=== PATIENT | male | born 1940 | race Caucasian/White ===

== ENCOUNTER → 2018-01-22 13:37 | Outpatient (CLI) | payer OTHER, SELFPAY ==
--- NOTE | 2018-01-22 | DI.RAD.S_ITS ---
PROCEDURE: XR HIP W PEL IF DONE RT 2V INDICATIONS: RIGHT HIP PAIN TECHNIQUE: AP pelvis with lateral view(s) of the right hip(s). COMPARISON: None. FINDINGS: Bones: No fractures or dislocations. Pelvic ring appears intact. No suspicious bony lesions. There is mild symmetric hip joint degeneration bilaterally. Soft tissues: The visualized bowel gas pattern is normal. Vascular calcifications consistent with atherosclerosis. 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 Dictated by: Laura Maravilla M.D. on 01/22/2018 at 15:19 Approved by: Laura Maravilla M.D. on 01/22/2018 at 15:20
== END ==
PROVIDERS: PCP Family Medicine; Visit Provider Family Medicine
DX: M25.551 Pain in right hip (principal); M16.0 Bilateral primary osteoarthritis of hip
CPT/HCPCS: 73502

== ENCOUNTER → 2018-02-15 14:04 | Outpatient (CLI) | payer OTHER, SELFPAY ==
--- NOTE | 2018-02-15 | DI.RAD.S_ITS ---
PROCEDURE: XR CHEST 2V INDICATIONS: COUGH TECHNIQUE: 2 views of the chest were acquired. COMPARISON: [facility], , CHEST 2 VIEW, 11/22/2015, 14:51. FINDINGS: Surgical changes and devices: None. Lungs and pleura: No pleural effusions or pneumothorax. Lungs are clear. Mediastinum: Mediastinal contours are normal. Heart size is normal. Bones and chest wall: No suspicious bony abnormalities. Soft tissues appear unremarkable. IMPRESSION: No acute disease. Dictated by: Marcial De La Cruz M.D. on 02/15/2018 at 15:01 Approved by: Marcial De La Cruz M.D. on 02/15/2018 at 15:02
== END ==
PROVIDERS: Family Provider Family Medicine; PCP Family Medicine; Visit Provider Nurse Practitioner Family
DX: R05 Cough (principal)
CPT/HCPCS: 71046

== ENCOUNTER → 2018-03-19 12:49 | Outpatient (CLI) | payer OTHER, SELFPAY ==
[2018-03-19 13:29] LABS: Prothrombin Time 11.1 SECONDS (10.1-12.7)
== END ==
PROVIDERS: Family Provider Family Medicine; PCP Family Medicine; Visit Provider Urology
DX: N40.1 Benign prostatic hyperplasia with lower urinary tract symptoms (principal); Z79.01 Long term (current) use of anticoagulants
CPT/HCPCS: 36415; 84153; 85610

== ENCOUNTER → 2018-12-04 12:58 | Outpatient (CLI) | payer OTHER, SELFPAY ==
--- NOTE | 2018-12-04 | DI.MRI.S_ITS ---
PROCEDURE: MR LUMBAR SPINE WO CON INDICATIONS: Low back pain TECHNIQUE: Noncontrast sagittal T1 spin echo and T2 fast echo, sagittal STIR, axial T1 and T2 fast spin echo through the lumbar spine. In cases with scoliosis, additional coronal T2 fast spin echo may be performed. COMPARISON: [facility], MR, L-SPINE WITHOUT CONTRAST, 08/13/2016, 13:19. FINDINGS: Image quality: Excellent. Alignment and Curvature: There is normal bony alignment. Bone Marrow: Marrow is of normal overall signal. No acute vertebral body compression fractures. Spinal Cord: Conus medullaris terminates at the L1 level. Visualized cord demonstrates normal signal and size. Paraspinous Soft Tissues: No paravertebral masses. T12-L1: No canal stenosis or foraminal stenosis. L1-L2: No canal stenosis or foraminal stenosis. Mild facet hypertrophy. L2-L3: Unchanged. Axial imaging under estimates the degree of canal stenosis. Mild to moderate disc height loss. Posterior disc bulge plus facet and ligament hypertrophy plus epidural lipomatosis results in severe canal stenosis. Mild right foraminal narrowing and moderate left foraminal narrowing. The left L2 nerve root sleeve is flattened in the left foramen. L3-L4: Moderate diffuse disc bulge with mild superimposed central posterior disc protrusion and facet and ligament hypertrophy results in severe canal stenosis. There is mild bilateral foraminal narrowing. L4-L5: Diffuse disc bulge and facet and ligament hypertrophy result in severe canal stenosis. There is moderate left foraminal narrowing with flattening of the left L4 nerve root sleeve. L5-S1: Mild disc bulge. Prominent facet ligament hypertrophy. No significant canal stenosis. Mild bilateral foraminal stenosis. IMPRESSION: 1. Severe multifactorial canal stenosis at L2-L3, L3-L4, and L4-L5. 2. There is moderate left foraminal narrowing at L2-L3 and L4-L5. Dictated by: Alejandro Navarro M.D. on 12/06/2018 at 8:55 Approved by: Alejandro Navarro M.D. on 12/06/2018 at 9:12
== END ==
PROVIDERS: PCP Family Medicine; Visit Provider Family Medicine
DX: M54.5 Low back pain (principal); M48.061 Spinal stenosis, lumbar region without neurogenic claudication; M48.07 Spinal stenosis, lumbosacral region
CPT/HCPCS: 72148

== ENCOUNTER 2019-04-04 12:02 | Emergency (ER) | payer OTHER, SELFPAY ==
[2019-04-04 12:17] VITALS: BP 148/75; PULSE 63; RESP 16; TEMP 36.3; O2SAT 96
--- NOTE | 2019-04-04 12:34 | DI.RAD.S_ITS ---
PROCEDURE: XR HAND RT MIN 3V INDICATIONS: deep laceration on R base of thumb TECHNIQUE: 3 views of the hand(s) acquired. COMPARISON: None. FINDINGS: Bones: No fractures or dislocations. Carpal bones are normally aligned. No suspicious bony lesions. Soft tissues: No suspicious soft tissue calcifications. 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 No malalignment is associated. Dictated by: Joesph Acevedo M.D. on 04/04/2019 at 12:59 Approved by: Joesph Acevedo M.D. on 04/04/2019 at 13:00
[2019-04-04] MEDS: LIDO 1%/SOD BICARB 8.4% (10ML) 10 ML SYRINGE INJ (12:59)
[2019-04-04] MEDS: TET,DIPH,PERTUSS(ACELL),VAC/PF 0.5 ML SYRINGE IM (12:59)
[2019-04-04] MEDS: HYDROCODONE/ACET 5/325 TABLET 1 TAB PO (13:00)
[2019-04-04] MEDS: ACETAMINOPHEN 325 MG TABLET PO (13:00)
--- NOTE | 2019-04-04 13:23 | ED_ITS ---
HPI - Extremity Injury (Upper) <Francis JacksonJUNITOP - Last Filed: 04/05/19 02:00> General Chief Complaint: Extremity Injury, Upper Stated Complaint: CUT ON RIGHT HAND Time Seen by Provider: 04/04/19 12:27 Source: patient Mode of arrival: Wheelchair Limitations: no limitations History of Present Illness HPI narrative: This is a 78-year-old male, former smoker, who presents to ED with significant other with chief complain of deep laceration to right volar aspect of the base of thumb. Patient is right dominant hand. Spouse reports they were working on a road sign which was held up with bungee cord. The bungee cord accidentally snapped and grabbed on affected site on the palm and caused the laceration. Patient was unable to recall last tetanus immunization. Patient reports severe discomfort on affected hand and rates as 9 to 10/10 in sharp and aching pain. Related Data Home Medications Medication Instructions Recorded Confirmed aspirin #0 01/24/16 atorvastatin [Lipitor] 20 mg PO QDAY #0 01/24/16 tamsulosin [Flomax] 0.4 mg PO QDAY #0 01/24/16 Previous Rx's Medication Instructions Recorded oxycodone-acetaminophen [Percocet] 1 - 2 tab PO Q6HP PRN #30 tab 01/24/16 Allergies Allergy/AdvReac Type Severity Reaction Status Date / Time codeine [CODEINE] Allergy Intermediate NAUSEA Verified 04/04/19 13:40 Review of Systems <Francis Jackson [facility] - Last Filed: 04/05/19 02:00> Review of Systems Narrative: General: Denies fever, chills, fatigue, malaise, sweats. HEENT: Denies sinus pain, ear pain, sore throat, difficulty swallowing, dizziness. Respiratory: Denies dyspnea, cough, wheezing, hemoptysis, sputum. Cardiovascular: Denies chest pain, palpitations, orthopnea, edema. Gastrointestinal: Denies nausea, vomiting, abdominal pain, diarrhea, constipation, melena. : Denies dysuria, frequency, incontinence, hematuria, urinary retention. Musculoskeletal: See HPI Skin: See HPI Neurologic: Denies weakness, headache, numbness, change in speech, confusion, seizures, incoordination. Psychiatric: No concerning psychosocial issues. 12-point review of systems is negative except for those stated above. Patient History <DAYA Quinones - Last Filed: 04/05/19 02:00> Medical History BPH (benign prostatic hyperplasia) (Acute) Hyperlipidemia (Acute) Spinal stenosis (Acute) Surgical History H/O hernia repair (Acute) Social History Smoking Status: Former smoker Smoking Status: Former smoker alcohol intake frequency: 0-2 drinks per day Substance Use Type: does not use Exam <DAYA Quinones - Last Filed: 04/05/19 02:00> Narrative Exam Narrative: General appearance: well developed, well nourished, in discomfort. Head: normocephalic, atraumatic, no scalp lesions, non-tender. ENT: Bilateral auditory canals and tympanic membranes clear. Hearing grossly intact. Nose without bleeding, purulent discharge, septal hematoma or deviation. Turbinate without erythema or swelling. Facial sinuses nontender to palpate. Mucous membrane moist, no mucosal lesion. Throat without erythema, tonsillar hypertrophy or exudate. Uvula in midline, airway patent. Neck/Thyroid: neck supple, full range of motion, no visible masses or meningeal signs. No JVD, non-tender without lymphadenopathy. Skin: Approx. 3.5 cm of deep laceration on Right volar aspect of metacarpal in L shape. no suspicious rashes, lesions over other visible areas. Warm and dry and appropriate color for ethnicity. Heart: no clubbing, no cyanosis, no edema. S1 and S2 normal. RRR w/o murmurs, clicks, or bruits. Lungs: Breathing even and unlabored. No stridor. No accessory muscles used. Able to speak in full sentences. Chest: normal shape and expansion. Abdomen: non-obese, non-distended. Neurologic: alert and oriented. Cognitive exam, INSOLE STIFFENER and PNS grossly intact on informal exam. Psych: good eye contact, normal affect. Initial Vital Signs Initial Vital Signs: Vital Signs Temperature 97.3 F L 04/04/19 12:17 Pulse Rate 63 04/04/19 12:17 Respiratory Rate 16 04/04/19 12:17 Blood Pressure 148/75 H 04/04/19 12:17 Pulse Oximetry 96 04/04/19 12:17 <Yan Greer MD - Last Filed: 04/06/19 21:21> Initial Vital Signs Initial Vital Signs: Vital Signs Temperature 97.3 F L 04/04/19 12:17 Pulse Rate 63 04/04/19 12:17 Respiratory Rate 16 04/04/19 12:17 Blood Pressure 148/75 H 04/04/19 12:17 Pulse Oximetry 96 04/04/19 12:17 Procedures <DAYA Quinones - Last Filed: 04/05/19 02:00> Laceration Repair Laceration 1: Site: hand Side (If applicable): right Size (cm): 4 Description: flap and irregular Depth: simple, single layer Local Anesthetic: lidocaine 1% and with bicarb Amount of anesthesia used (mL): 5 Pre-repair: wound explored, irrigated extensively and deep structures intact Skin layer closed with: nylon Size (cm): 4-0 Number of sutures: 6 Technique: simple, interrupted and other (vertical x4, simple x2) Scores <DAYA Quinones - Last Filed: 04/05/19 02:00> GCS Karis coma scale eye opening: Spontaneous Karis coma scale verbal response: Orientated [place] coma scale motor response: Obey commands [place] coma scale total score: 15 Course <DAYA Quinones - Last Filed: 04/05/19 02:00> Orders Ordered: Discontinued Medications Acetaminophen (Tylenol) 325 mg PO Q6HR PRN PRN Reason: Fever/Mild Pain (1-3) Last Admin: 04/04/19 13:00 Dose: 325 mg Documented by: EMMETT Hydrocodone Bitart/Acetaminophen (Industry 5/325) 1 tab PO NOW ONE Stop: 04/04/19 12:35 Last Admin: 04/04/19 13:00 Dose: 1 tab Documented by: EMMETT Bacitracin (Bacitracin) 2 applic TOP NOW ONE Stop: 04/04/19 12:35 Last Admin: 04/04/19 13:39 Dose: 2 applic Documented by: EMMETT Diphtheria/Tetanus/Acell Pertussis (Adacel) 0.5 ml IM .ONCE ONE Stop: 04/04/19 12:35 Last Admin: 04/04/19 12:59 Dose: 0.5 ml Documented by: EMMETT Lidocaine/Sodium Bicarbonate (Buffered Lidocaine 10 Ml Syr) 10 ml INJ NOW ONE Stop: 04/04/19 12:35 Last Admin: 04/04/19 12:59 Dose: 10 ml Documented by: EMMETT Ondansetron HCl (Zofran Odt) 4 mg PO NOW ONE Stop: 04/04/19 14:00 Last Admin: 04/04/19 14:05 Dose: 4 mg Documented by: EMMETT Vital Signs Vital signs: Vital Signs - 8 hr 04/04/19 12:17 Temperature 97.3 F L Pulse Rate 63 Respiratory Rate 16 Blood Pressure 148/75 H Pulse Oximetry 96 <Yan Greer MD - Last Filed: 04/06/19 21:21> Orders Ordered: Discontinued Medications Acetaminophen (Tylenol) 325 mg PO Q6HR PRN PRN Reason: Fever/Mild Pain (1-3) Last Admin: 04/04/19 13:00 Dose: 325 mg Documented by: EMMETT Hydrocodone Bitart/Acetaminophen (Industry 5/325) 1 tab PO NOW ONE Stop: 04/04/19 12:35 Last Admin: 04/04/19 13:00 Dose: 1 tab Documented by: EMMETT Bacitracin (Bacitracin) 2 applic TOP NOW ONE Stop: 04/04/19 12:35 Last Admin: 04/04/19 13:39 Dose: 2 applic Documented by: EMMETT Diphtheria/Tetanus/Acell Pertussis (Adacel) 0.5 ml IM .ONCE ONE Stop: 04/04/19 12:35 Last Admin: 04/04/19 12:59 Dose: 0.5 ml Documented by: EMMETT Lidocaine/Sodium Bicarbonate (Buffered Lidocaine 10 Ml Syr) 10 ml INJ NOW ONE Stop: 04/04/19 12:35 Last Admin: 04/04/19 12:59 Dose: 10 ml Documented by: EMMETT Ondansetron HCl (Zofran Odt) 4 mg PO NOW ONE Stop: 04/04/19 14:00 Last Admin: 04/04/19 14:05 Dose: 4 mg Documented by: EMMETT Vital Signs Vital signs: Vital Signs - 8 hr 04/04/19 12:17 Temperature 97.3 F L Pulse Rate 63 Respiratory Rate 16 Blood Pressure 148/75 H Pulse Oximetry 96 [facility] - Extremity Injury (Upper) <DAYA Quinones - Last Filed: 04/05/19 02:00> Differential Diagnosis Differential diagnosis: Likely fracture of hand and other (Laceration of left hand) Medical Records Attestation: I reviewed the patient's medical records. Imaging Data XR-Wrist LT: Radiologist's Impression: [address] [address] XRay Report Signed Patient: Robin Vasquez AMR#: [id number] : 3Acct:[id number] Age/Sex: 78 / MDate of Service: 04/04/19 Loc: ED Accession Number: [id number] Procedure: XR hand RT min 3V Ordering Provider: Francis Jackson PROCEDURE: XR HAND RT MIN 3V INDICATIONS: deep laceration on R base of thumb TECHNIQUE: 3 views of the hand(s) acquired. COMPARISON: None. FINDINGS: Bones: No fractures or dislocations. Carpal bones are normally aligned. No suspicious bony lesions. Soft tissues: No suspicious soft tissue calcifications. 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 No malalignment is as sociated. Dictated by: Joesph Acevedo M.D. on 04/04/2019 at 12:59 Approved by: Joesph Acevedo M.D. on 04/04/2019 at 13:00 [facility] Narrative Medical decision making narrative: Please see procedure note for laceration repair with 4 with vertical mattress sutures and 2 with simple interrupted. No fracture or dislocation noted per left hand x-ray. Tetanus immunization was updated today. Patient was medicated with Industry on arrival for severe pain and Zofran for nausea during suture procedure. Return precautions and wound care instruction reviewed with patient and spouse. Suture removal in 7-10 days. Advised to take Tylenol and or Motrin as needed for discomfort. Patient and spouse verbalized understanding and agrees with the treatment plan. Discharge Plan Departure Patient Disposition: Home Clinical Impression: Laceration of deep palmar arch of right hand, initial encounter Discharge Date/Time: 04/04/19 14:49 Instructions: DI for Laceration Repair -- Complex Suture Activity Restrictions/Additional Instructions: You have been diagnosed with [deep laceration on durand aspect of right hand]. What to do: *Take your medications as directed. You can take [id number] Tylenol 650 4 times a day as needed for discomfort. Ibuprofen 400 mg 3 times a day with food for discomfort. Please do not get your wound soaked in the water until suture removal. Keep your dressing intact for next 24 hrs. After then, you could remove your dressing, wash with soap and water. Pat dry with clean paper towel and dress it with antibiotic ointment. You can change dressing as needed and daily. Please monitor for signs and symptoms for infection such as increasing redness, swelling, warmth, pain, fever, purulent discharge. If this occurs, please return to ED or follow up with your primary care physician since your wound may be gotten infected. Please follow up with your primary care provider in 2-3 days for recheck wound. Your suture should be removed 7-10 days. This can be done by your primary provider, walk-in clinic or here in ED. Please keep your wound clean, dry and intact all times. *Return to ED if you have any new, worsening, or concerning symptoms, such as [signs of infection, increasing pain, fever, chest pain, breathing difficulty, or any acute concerns]. Prescriptions: No Action aspirin 81 MG tablet,delayed release (DR/EC) Qty: 0 RF: 0 tamsulosin [Flomax] 0.4 MG capsule,extended release 24hr 0.4 mg PO QDAY Qty: 0 RF: 0 atorvastatin [Lipitor] 20 MG tablet 20 mg PO QDAY Qty: 0 RF: 0 oxycodone-acetaminophen [Percocet] 5 MG/325 MG tablet 1 - 2 tab PO Q6HP PRNQty: 30 RF: 0 Referrals: Arnaldo Santoro MD [Primary Care Provider] -
[2019-04-04] MEDS: BACITRACIN OINT 0.9 GM PCKT 2 APPLIC TOP (13:39)
[2019-04-04] MEDS: ONDANSETRON 4 MG ODT PO (14:05)
[2019-04-04 14:48] VITALS: BP 135/53; PULSE 73
== END 2019-04-04 14:49 | disposition home or self-care (01) ==
PROVIDERS: Emergency Provider Nurse Practitioner Family; PCP Family Medicine
DX: S65.311A Laceration of deep palmar arch of right hand, initial encounter (principal); W45.8XXA Other foreign body or object entering through skin, initial encounter; Z23 Encounter for immunization
CPT/HCPCS: 12002; 73130; 90471; 99283; 99284; 90715

== ENCOUNTER → 2020-07-27 09:35 | Outpatient (CLI) | payer MEDICARE, SELFPAY ==
--- NOTE | 2020-07-27 | DI.RAD.S_ITS ---
PROCEDURE: XR CHEST 2V INDICATIONS: Dyspnea on exertion TECHNIQUE: 2 views of the chest were acquired. COMPARISON: [facility], CR, XR CHEST 2V, 02/15/2018, 14:11. FINDINGS: Surgical changes and devices: None. Lungs and pleura: Scattered subsegmental scarring and/or atelectasis. No acute consolidation. No pleural effusions or pneumothorax. Mediastinum: Mediastinal contours are normal. Heart size is normal. Bones and chest wall: No suspicious bony abnormalities. Soft tissues appear unremarkable. IMPRESSION: No acute disease. Dictated by: Marcial De La Cruz M.D. on 07/27/2020 at 13:06 Approved by: Marcial De LaC ruz M.D. on 07/27/2020 at 13:08
--- NOTE | 2020-07-27 | DI.RAD.S_ITS ---
PROCEDURE: XR HIP W PEL IF DONE RT 2V INDICATIONS: RIGHT HIP PAIN TECHNIQUE: AP pelvis with lateral view(s) of the right hip(s). COMPARISON: [facility], , XR HIP W PEL IF DONE RT 2V, 01/22/2018, 13:44. FINDINGS: Bones: No acute fracture identified. Mild bilateral hip osteoarthritis which is grossly unchanged. Lumbar spondylosis and facet arthropathy. Incidentally noted round 1 cm sclerotic focus or calcification projects over the superomedial acetabular wall, unchanged since 01/22/18. Soft tissues: Scattered vascular calcifications. IMPRESSION: Mild bilateral hip osteoarthritis which is unchanged. If the patient's pain or other symptoms persist, consider further evaluation with MRI Dictated by: Marcial De La Cruz M.D. on 07/27/2020 at 13:04 Approved by: Marcial De La Cruz M.D. on 07/27/2020 at 13:06
--- NOTE | 2020-08-01 11:05 | PM.PFT.1 ---
Pulmonary Function Test Referral & Results Date Patient Seen: 07/27/20 Requesting provider: Arnaldo Santoro Results: The spirometry demonstrates an FVC of 2.76 L which is 67% of predicted. The FEV1 was measured at 1.85 L which is 62% of predicted. The FEV1/FVC ratio was 67 which is 93% of predicted. Following the administration of bronchodilator there was no significant change. Lung volumes show an SVC of 3.56 L which is 80% of predicted. The diffusing capacity was measured at 26.41 which is 81% of predicted. The maximum voluntary ventilation was reduced Interpretation: This study demonstrates moderate obstructive lung disease based on reduction FEV1 although FEV1/FVC ratio is relatively preserved, shape a flow volume loop also supports obstructive lung disease There is also reduction in lung volumes suggesting mild restrictive lung disease There may be a minimal reduction in diffusing capacity suggesting element of disease at the capillary alveolar level, unless patient is anemic
== END ==
PROVIDERS: PCP Family Medicine; Referring Provider Family Medicine; Visit Provider Family Medicine
DX: R06.00 Dyspnea, unspecified (principal); M25.551 Pain in right hip; J98.8 Other specified respiratory disorders; Z20.822 Contact with and (suspected) exposure to COVID-19; Z87.891 Personal history of nicotine dependence
CPT/HCPCS: 71046; 73502; 87635; 94060; 94726; 94729; C9803

== ENCOUNTER → 2020-07-27 09:41 | Outpatient (CLI) | payer MEDICARE, SELFPAY ==
[2020-07-27 11:05] LABS: COVID19 -Nasal RAPID Negative (Negative)
== END ==
LOC: RESP 09:42 → LAB 07-30 10:12
PROVIDERS: PCP Family Medicine; Referring Provider Family Medicine; Visit Provider Family Medicine
DX: R06.09 Other forms of dyspnea (principal); Z20.822 Contact with and (suspected) exposure to COVID-19
CPT/HCPCS: 87635; C9803

== ENCOUNTER → 2020-09-24 12:31 | Outpatient (CLI) | payer MEDICARE, SELFPAY ==
--- NOTE | 2020-09-24 | DI.MRI.S_ITS ---
PROCEDURE: MR LUMBAR SPINE WO CON INDICATIONS: Other spondylosis, lumbar region TECHNIQUE: Noncontrast sagittal T1 spin echo and T2 fast echo, sagittal STIR, axial T1 and T2 fast spin echo through the lumbar spine. In cases with scoliosis, additional coronal T2 fast spin echo may be performed. COMPARISON: [facility], MR, MR LUMBAR SPINE WO CON, 12/04/2018, 13:15. FINDINGS: Image quality: Excellent. Alignment and Curvature: There is trace retrolisthesis of L2 on L3, L3 on L4. Bone Marrow: Marrow is of normal overall signal. Mild reactive endplate changes are present at L1-L2, L2-3 L4-5 with Schmorl's node along the superior endplate of L5. No acute vertebral body compression fractures. Spinal Cord: Conus medullaris terminates at the L1 level. Visualized cord demonstrates normal signal and size. Paraspinous Soft Tissues: No paravertebral masses. Discs: Moderate desiccation is present throughout the lumbar spine. L1-L2: Minimal disc bulge without spinal stenosis. Mild bilateral foraminal narrowing with facet and ligamentum flavum hypertrophy, slightly progressive. L2-L3: Mild disc bulge with [id number] bilateral foraminal narrowing, left greater than right, unchanged. Facet and ligamentum flavum hypertrophy are present. Moderate to severe spinal stenosis is present, unchanged. L3-L4: Mild disc bulge with severe spinal stenosis and mild canal compression, minimally progressive. There is mild to moderate bilateral foraminal narrowing, slightly progressive. Facet and ligamentum flavum hypertrophy are present. L4-L5: Mild disc bulge with severe spinal stenosis and mild canal compression, unchanged. There is moderate left and mild right foraminal narrowing with slight flattening of the left L4 nerve root, unchanged. L5-S1: Mild disc bulge without spinal stenosis. Mild bilateral foraminal narrowing with facet hypertrophy. No interval change. IMPRESSION: 1. Multilevel degenerative changes with areas of slight interval progression as above. 2. Multilevel significant spinal stenosis at L2-3, L3-4 and L4-5 secondary to disc bulge with contributing affective facet/ligamentum flavum arthropathy. Dictated by: Candace Mendoza M.D. on 09/24/2020 at 15:32 Approved by: Candace Mendoza M.D. on 09/24/2020 at 15:50
== END ==
PROVIDERS: PCP Family Medicine; Referring Provider Orthopaedic Surgery; Visit Provider Orthopaedic Surgery
DX: M47.896 Other spondylosis, lumbar region (principal); M51.26 Other intervertebral disc displacement, lumbar region; M48.061 Spinal stenosis, lumbar region without neurogenic claudication
CPT/HCPCS: 72148

== ENCOUNTER 2021-05-09 11:23 | Observation (INO) | payer MEDICARE, SELFPAY ==
[2021-05-09] VITALS (14 sets, daily range): BP systolic 171–222; BP diastolic 79–100; PULSE 55–62; RESP 13–26; TEMP 36.2–37; O2SAT 96–99; BMI 27.1
--- NOTE | 2021-05-09 11:57 | PC.NURSE ---
took Tramadol at 7 am for a cystoscopy appt, in [place]. at 1000 am pt started to have slurred speech in the car. md. dowd
--- NOTE | 2021-05-09 12:00 | DI.CT.S_ITS ---
PROCEDURE: CT HEAD/BRAIN WO CON INDICATIONS: slurring speech now resolved TECHNIQUE: Noncontrast 4.5 mm thick angled axial sections acquired from the foramen magnum to the vertex, with coronal and sagittal reformats. For radiation dose reduction, the following was used: automated exposure control, adjustment of mA and/or kV according to patient size. COMPARISON: None. FINDINGS: Image quality: Excellent. CSF spaces: Basal cisterns are patent. No extra-axial fluid collections. The ventricles are symmetric in size and shape. Brain: No intracranial bleeds or masses. There is cerebral volume loss for age, with resultant ventricular and sulcal prominence. There are periventricular and deep white matter chronic small vessel ischemic changes. There is intracranial internal carotid artery atherosclerosis. Skull and face: Calvarium and visualized facial bones appear intact, without suspicious lesions. Sinuses: Mild mucosal thickening in left maxillary sinus is seen. Bilateral mastoids are well aerated. IMPRESSION: 1. No CT evidence of acute intracranial abnormalities. 2. Age-appropriate atrophy and mild white matter chronic small vessel ischemic changes. Dictated by: Aleks Calderon M.D. on 05/09/2021 at 12:18 Approved by: Aleks Calderon M.D. on 05/09/2021 at 12:19
--- NOTE | 2021-05-09 12:02 | ED_ITS ---
HPI - Neuro Symptoms/Deficit General Chief Complaint: Neuro Symptoms/Deficit Stated Complaint: High BP- sent by Alta Santoro Time Seen by Provider: 05/09/21 11:59 Source: patient Mode of arrival: Ambulatory History of Present Illness HPI Narrative: Patient is a 80-year-old male has a history of BPH presenting today with elevated blood pressure and difficulty speaking. He went to urologist up in telling him to have a procedure. Prior to the procedure he was instructed to take 2 tramadol so he took 2 tramadol around 7:00 a.m. around 10:00 a.m. started having some slurring of speech. The urologist instructed him to follow up with his primary care provider so she drove down here to see his primary care noted to have elevated blood pressure speech has improved and he was sent to the ER for further evaluation. He continues to have hypertension but no focal deficits. He has no prior history of stroke or TIA. He currently denies any chest pain palpitations dizziness or lightheadedness. did not notice any new facial drooping he does have some chronic mild right facial droop. On Anticoagulants: No Related Data Home Medications Medication Instructions Recorded Confirmed atorvastatin 20 mg tablet (Lipitor) 20 mg PO QDAY #0 01/24/16 05/09/21 Allergies Allergy/AdvReac Type Severity Reaction Status Date / Time codeine [CODEINE] Allergy Intermediate NAUSEA Verified 05/09/21 12:00 Review of Systems Review of Systems Narrative: GENERAL: Denies chills, fatigue, malaise, fever, sweats, travel HEENT: Denies sinus pain, ear pain, sore throat, difficulty swallowing, neck pain RESPIRATORY: Denies dyspnea, cough, wheezing, hemoptysis, sputum. CARDIOVASCULAR: Denies chest pain, palpitations, orthopnea, edema GASTROINTESTINAL: Denies nausea, vomiting, abdominal pain, diarrhea, constipation, melena. : Denies dysuria, frequency, incontinence, hematuria, urinary retention, flank pain. MUSCULOSKELETAL: Denies weakness, joint pain, or bony pain SKIN: No rash, no erythema, no pruritus NEUROLOGIC: See HPI PSYCHIATRIC: No concerning psychosocial issues. 12 point review of systems is negative except for those stated above and HPI Hematologic/Lymphatic On Anticoagulants: No Patient History Medical History BPH (benign prostatic hyperplasia) Hyperlipidemia Spinal stenosis Surgical History H/O hernia repair Social History household members: spouse Smoking Status: Former smoker Smoking Status: Former smoker alcohol intake frequency: 0-2 drinks per day Substance Use Type: does not use Exam Initial Vital Signs Initial Vital Signs: Vital Signs Temperature 98.6 F 05/09/21 11:33 Respiratory Rate 18 05/09/21 11:33 Blood Pressure 222/95 H 05/09/21 11:33 Pulse Oximetry 99 05/09/21 11:33 GENERAL: Alert well-appearing 80-year-old male in no acute distress. HEENT: Head atraumatic,EOMI, pupils reactive, face symmetric, moist mucous membranes CARDIOVASCULAR: Regular rate and rhythm without murmurs, rubs or gallops. RESPIRATORY: Breath sounds equal bilaterally, no wheezes rales or rhonchi. ABDOMEN: Soft, nontender. Normoactive bowel sounds all 4 quadrants. No gua rding or rebound. EXTREMITIES: Normal range of motion, no clubbing or edema. Neurovascularly intact NEUROLOGICAL: Alert and oriented x4.Normal gait and speech. Cranial nerves II through XII grossly intact. Good [id number], good [id number], strength equal bilaterally, no dysarthria or aphasia, sensation in tact to soft touch bilaterally, no visual changes, mild right facial droop-unchanged per SKIN: Warm, dry, no laceration, no petechiae, no rashes or lesions. Scores NIH Stroke Scale Level of Conciousness: Alert, keenly responsive Ask month/age: Answers both questions correctly. Open/close eyes, close hand: Performs both tasks correctly Best gaze horizontal: Normal Visual mtz: No visual loss Facial palsy: Normal symetrical movement Left arm drift: No drift for full 10 sec Right arm drift: No drift for full 10 sec Left leg drift: No drift for full 5 sec Right leg drift: No drift for full 5 sec Limb ataxia: Absent Sensory on face/arms/legs: Normal, no sensory loss Best language: No aphasia, normal Dysarthria: Normal Extinction or inattention: No abnormality Total NIH Stroke scale score: 0 Course Orders Ordered: ED Orders 05/09/21 12:00 CT head/brain wo con Stat Complete Blood Count AUTO DIFF Stat Comprehensive Metabolic Panel Stat Partial Thromboplastin Time Stat Prothrombin Time INR Stat Troponin & CK Cardiac Panel Stat Urine Drug Screen, Rapid Stat 05/09/21 13:13 MR stroke Stat 05/09/21 13:23 COVID19 -Nasal swab/Pre-Proc Stat Acetaminophen (Acetaminophen 325 Mg Tablet) 650 mg PO Q6HR [facility] Last Admin: 05/09/21 18:02 Dose: 650 mg Documented by: DARIO Docusate Sodium (Docusate 100 Mg Capsule) 100 mg PO BID [facility] Enoxaparin Sodium (Enoxaparin 40 Mg/0.4 Ml Syringe) 40 mg SUBCUT DAILY [facility] Hydralazine HCl (Hydralazine 20 Mg/Ml Vial) 10 mg IV Q6HR PRN PRN Reason: Hypertension SBP >160 Lisinopril (Lisinopril 20 Mg Tablet) 20 mg PO DAILY [facility] Last Admin: 05/09/21 18:02 Dose: 20 mg Documented by: DARIO Naloxone HCl (Naloxone 0.4 Mg/Ml Vial) 0.2 mg IV Q2MIN PRN PRN Reason: Opiate Reversal Ondansetron HCl (Ondansetron 4 Mg/2 Ml Inj) 4 mg IV Q8HR PRN PRN Reason: Nausea And Vomiting Ondansetron HCl (Ondansetron 4 Mg Odt) 4 mg PO Q8HR PRN PRN Reason: Nausea And Vomiting Tamsulosin HCl (Tamsulosin 0.4 Mg Capsule) 0.4 mg PO DAILY [facility] Last Admin: 05/09/21 18:01 Dose: 0.4 mg Documented by: DARIO Discontinued Medications Aspirin (Aspirin 325 Mg Tablet) 325 mg PO NOW ONE Stop: 05/09/21 13:14 Last Admin: 05/09/21 13:45 Dose: 325 mg Documented by: EDY Vital Signs Vital signs: Vital Signs - 8 hr 05/09/21 11:33 05/09/21 11:38 05/09/21 11:39 Temperature 98.6 F Pulse Rate 59 L Respiratory Rate 18 16 Blood Pressure 222/95 H 199/84 H Pulse Oximetry 99 96 97 05/09/21 11:40 05/09/21 11:45 05/09/21 11:50 Temperature Pulse Rate 59 L 58 L 56 L Respiratory Rate 26 H 26 H 17 Blood Pressure Pulse Oximetry 99 97 98 05/09/21 11:53 05/09/21 12:00 05/09/21 12:15 Temperature Pulse Rate 56 L 55 L 58 L Respiratory Rate 22 22 20 Blood Pressure 206/96 H 193/88 H 190/86 H Pulse Oximetry 98 97 97 05/09/21 12:30 05/09/21 13:00 Temperature Pulse Rate 56 L 56 L Respiratory Rate 13 17 Blood Pressure 194/88 H 209/91 H Pulse Oximetry 97 97 MDM - Neuro Symptoms/Deficit Lab Data Result diagrams: 05/09/21 12:00 05/09/21 12:00 Labs: Lab Results 05/09/21 05/09/21 05/09/21 Range/Units 12:00 12:00 12:00 WBC 5.9 (4.5-11.0) X10^3/uL RBC 4.91 (4.5-5.9) X10^6/uL Hgb 15.1 (13.5-17.5) g/dL Hct 44.5 (41-53) % MCV 90.7 (80-100) fL MCH 30.8 (26-34) PG MCHC 34.0 (30-36) % RDW 13.3 (11.6-14.8) % Plt Count 183 (150-400) X10^3/uL Neut % (Auto) 74.8 (50-75) % Lymph % (Auto) 18.0 L (25-40) % [place] % (Auto) 4.7 (3-14) % Eos % (Auto) 2.0 (2-4) % Baso % (Auto) 0.5 (0-2) % Neut # (Auto) 4400 (1691-8769) /uL Lymph # (Auto) 1100 (5559-4000) /uL [place] # (Auto) 300 (0-900) /uL Eos # (Auto) 100 (0-450) /uL Baso # (Auto) 0 (0-100) /uL PT 10.7 (10.1-12.7) SECONDS INR 1.0 (0.9-1.3) APTT 34 (26.4-36.2) SECONDS Sodium 138 (137-145) mmol/L Potassium 4.6 (3.4-5.1) mmol/L Chloride 107 (98-107) mmol/L Carbon Dioxide 26 (22-32) mmol/L BUN 25 H (9-20) mg/dL Creatinine 1.17 (0.66-1.25) mg/dL Estimated GFR > 60.0 (>60) mL/min BUN/Creatinine Ratio 21.4 (6-22) Glucose 113 H (80-110) mg/dL Calcium 9.1 (8.4-10.2) mg/dL Total Bilirubin 0.7 (0.2-1.3) mg/dL AST 22 (17-59) IU/L ALT 12 (<50) IU/L Alkaline Phosphatase 53 (38-126) U/L Total Creatine Kinase 46 L (55-170) U/L CK-MB (CK-2) TNP CK-MB (CK-2) Rel Index TNP Troponin I < 0.012 (0.01-0.034) ng/mL Total Protein 7.3 (6.3-8.2) g/dL Albumin 4.1 (3.5-5.0) g/dL Globulin 3.2 (1.7-4.1) g/dL Albumin/Globulin Ratio 1.3 (1.0-2.8) SARS-CoV-2 (PCR) (Negative) 05/09/21 Range/Units 13:23 WBC (4.5-11.0) X10^3/uL RBC (4.5-5.9) X10^6/uL Hgb (13.5-17.5) g/dL Hct (41-53) % MCV (80-100) fL MCH (26-34) PG MCHC (30-36) % RDW (11.6-14.8) % Plt Count (150-400) X10^3/uL Neut % (Auto) (50-75) % Lymph % (Auto) (25-40) % [place] % (Auto) (3-14) % Eos % (Auto) (2-4) % Baso % (Auto) (0-2) % Neut # (Auto) (3171-4447) /uL Lymph # (Auto) (6104-0298) /uL [place] # (Auto) (0-900) /uL Eos # (Auto) (0-450) /uL Baso # (Auto) (0-100) /uL PT (10.1-12.7) SECONDS INR (0.9-1.3) APTT (26.4-36.2) SECONDS Sodium (137-145) mmol/L Potassium (3.4-5.1) mmol/L Chloride (98-107) mmol/L Carbon Dioxide (22-32) mmol/L BUN (9-20) mg/dL Creatinine (0.66-1.25) mg/dL Estimated GFR (>60) mL/min BUN/Creatinine Ratio (6-22) Glucose (80-110) mg/dL Calcium (8.4-10.2) mg/dL Total Bilirubin (0.2-1.3) mg/dL AST (17-59) IU/L ALT (<50) IU/L Alkaline Phosphatase (38-126) U/L Total Creatine Kinase (55-170) U/L CK-MB (CK-2) CK-MB (CK-2) Rel Index Troponin I (0.01-0.034) ng/mL Total Protein (6.3-8.2) g/dL Albumin (3.5-5.0) g/dL Globulin (1.7-4.1) g/dL Albumin/Globulin Ratio (1.0-2.8) SARS-CoV-2 (PCR) Negative (Negative) Imaging Data Chest x-ray: Radiologist's Impression: PROCEDURE:? CT HEAD/BRAIN WO CON ? INDICATIONS:? slurring speech now resolved ? TECHNIQUE:? Noncontrast 4.5 mm thick angled axial sections acquired from the foramen magnum to the vertex, with coronal and sagittal reformats.? For radiation dose reduction, the following was used:? automated exposure control, adjustment of mA and/or kV according to patient size.? ? COMPARISON:? None. ? FINDINGS:? Image quality:? Excellent.? ? CSF spaces:? Basal cisterns are patent.? No extra-axial fluid collections.? The ventricles are symmetric in size and shape.? ? Brain:? No intracranial bleeds or masses.? There is cerebral volume loss for age, with resultant ventricular and sulcal prominence.? There are periventricular and deep white matter chronic small vessel ischemic changes.? There is intracranial internal carotid artery atherosclerosis.? ? Skull and face:? Calvarium and visualized facial bones appear intact, without suspicious lesions.? ? Sinuses:? Mild mucosal thickening in left maxillary sinus is seen.? Bilateral mastoids are well aerated. ? IMPRESSION:? 1. No CT evidence of acute intracranial abnormalities. 2. Age-appropriate atrophy and mild white matter chronic small vessel ischemic changes. ? ? Dictated by: Aleks Calderon M.D. on 05/09/2021 at 12:18 ? ? ECG Data Interpretation: Normal sinus rhythm rate 59 AR interval [address] changes or T-wave inversions MDM Narrative Medical decision making narrative: Patient's symptoms have completely resolved but remains hypertensive. At this time no indication for tPA. Patient did take tramadol this morning, this like an unlikely cause of his slurring of speech, since it happened 3 hours after he took it. Other causes of slurring of speech would be TIA/CVA, which seems more likely equal to his persistent hypertension. This time leave hyper tension to help protect. Dr. Lozano in the ED to see and evaluate patient. Agrees with observation Discharge Plan Departure Patient Disposition: Admitted As Inpatient Clinical Impression: Brain TIA Admit Date/Time: 05/09/21 13:26 Admit Provider: Robin Lozano
[2021-05-09 12:34] LABS: Add Manual Diff / Slide Review NO; Basophils Absolute Auto 0 /uL (0-100); Basophils Percent Auto 0.5 % (0-2); Eosinophils Absolute Auto 100 /uL (0-450); Hematocrit 44.5 % (41-53); Hemoglobin 15.1 g/dL (13.5-17.5); Lymphocytes Absolute Auto 1100 /uL (1100-4500); Mean Corpuscular Hemoglobin 30.8 PG (26-34); Mean Corpuscular Volume 90.7 fL (80-100); Monocytes Absolute Auto 300 /uL (0-900); Monocytes Percent Auto 4.7 % (3-14); Neutrophils Absolute Auto 4400 /uL (1500-7000); Neutrophils Percent Auto 74.8 % (50-75); Platelet Count 183 X10^3/uL (150-400); Prothrombin Time 10.7 SECONDS (10.1-12.7); Red Blood Cell Count 4.91 X10^6/uL (4.5-5.9); Red Cell Distribution Width 13.3 % (11.6-14.8); White Blood Cell Count 5.9 X10^3/uL (4.5-11.0)
[2021-05-09 12:37] LABS: PTT Partial Thromboplastin Tim 34 SECONDS (26.4-36.2)
[2021-05-09 12:39] LABS: Alanine Aminotransferase 12 IU/L (<50); Albumin 4.1 g/dL (3.5-5.0); Albumin Globulin Ratio 1.3 (1.0-2.8); Alkaline Phosphatase 53 U/L (38-126); Aspartate Aminotransferase 22 IU/L (17-59); BUN Creatinine Ratio 21.4 (6-22); Bilirubin Total 0.7 mg/dL (0.2-1.3); Blood Urea Nitrogen 25 mg/dL (9-20); Calcium 9.1 mg/dL (8.4-10.2); Carbon Dioxide 26 mmol/L (22-32); Chloride 107 mmol/L (98-107); Creatine Kinase 46 U/L (55-170); Estimated Glomerular Filt Rate > 60.0 mL/min (>60); Globulin 3.2 g/dL (1.7-4.1); Glucose 113 mg/dL (80-110); HEMOLYSIS < 15 (0-50); Potassium 4.6 mmol/L (3.4-5.1); Sodium 138 mmol/L (137-145); Total Protein 7.3 g/dL (6.3-8.2)
[2021-05-09 12:50] LABS: Troponin I < 0.012 ng/mL (0.01-0.034)
--- NOTE | 2021-05-09 13:13 | DI.MRI.S_ITS ---
PROCEDURE: MR STROKE Pre- and post-contrast brain MRI, non-contrast brain MR angiogram, pre- and postcontrast neck MR angiogram INDICATIONS: tia TECHNIQUE: Brain: Noncontrast axial T1 spin echo, axial T2 fast spin echo, sagittal and axial FLAIR, coronal T2 fast spin echo, axial gradient echo, axial diffusion and ADC through the brain. After the administration of contrast, axial 3D VIBE of the cranial vasculature and brain. Brain MRA: Non-contrast 3-D time of flight MR angiogram, with multiple tmsqedn-guidmfgdc-nidpmnhgsb (MIP) reformats performed. Neck MRA: Axial and sagittal TruFISP through the neck. Coronal dynamic MR angiogram during administration of contrast in the arterial and venous phases, with 3-dimenstional ocofteo-aavtyycib-ynghteslro (MIP) reformats constructed from subtraction images. COMPARISON: [facility], , STROKE PROTOCOL, 12/07/2015, 13:21. FINDINGS: Image quality: Excellent. BRAIN: CSF spaces: Ventricles are normal in size and shape. Basal cisterns are patent. No extra-axial fluid collections. Brain: Mild atrophy and multifocal white matter chronic ischemic change noted. No intracranial bleeds or mass effects. Garcia-white matter interface is normal. Diffusion weighted images show no acute infarct. Brainstem appears normal. Normal intravascular flow voids are present. No abnormal intracranial enhancement. Skull and face: Calvarial marrow signal is normal. Orbits appear normal. Sinuses: Sinuses and mastoids are clear. BRAIN MR ANGIOGRAM: Anterior circulation: Intracranial internal carotid arteries are normal in size and enhancement. The flow within the paired anterior cerebral arteries is normal and symmetric. The flow within the middle cerebral arteries is normal and symmetric. The anterior communicating artery is seen. No stenoses, occlusions, or aneurysms. Posterior circulation: The visualized portions of the vertebral arteries demonstrate normal caliber, and join to form a normal appearing basilar artery. The flow within the posterior cerebral arteries is normal and symmetric. No stenoses, occlusions, or aneurysms. NECK MR ANGIOGRAM: Carotids: Great vessels demonstrate a conventional anatomy as they arise from the aortic arch. The origins of the common carotid arteries appear patent. The calibers and courses of both common carotid arteries are normal. Atherosclerotic stenosis results in 20 in 30% bilateral proximal ICA stenosis Posterior circulation: The origins of the vertebral arteries appear patent. More superior portions of both vertebral arteries demonstrate normal course and caliber, and join to form a normal appearing basilar artery. Miscellaneous: Subclavian arteries appear patent. Pre-contrast images through the neck show no soft tissue abnormalities. IMPRESSION: 1. Atrophy and chronic ischemic change without acute hemorrhage, infarct or mass lesion 2. Unremarkable MR angiogram of the brain without large vessel occlusion, aneurysm or vascular malformation 3. Mild 20% stenosis of both proximal internal carotid arteries utilizing NASCET criteria Approved by: Ganesh Sanchez M.D. on 05/09/2021 at 15:27
[2021-05-09] MEDS: ASPIRIN 325 MG TABLET PO (13:45)
[2021-05-09 14:38] LABS: COVID19 -Nasal RAPID Negative (Negative)
--- NOTE | 2021-05-09 16:34 | PC.NURSE ---
1430: Admitted patient to room 215, awake, alert, and oriented x 4. Ambulated from rney to bed with steady gait. NIH 0 on arrival. NO motor or sensory deficits. NO speech impairment, agrees. Tele placed on arrival. Off floor to MRI. Patient is DNAR per patient and spouse. Spouse (Kym) to bring copy of POLST. Oriented to room, environment, and plan of care.
--- NOTE | 2021-05-09 17:12 | P.HP_ITS ---
History of Present Illness History of Present Illness Date Patient Seen: 05/09/21 Time Patient Seen: 12:00 Date of Onset of Symptoms: 05/09/21 Chief complaint: High BP- sent by Alta Santoro Narrative: Pt was scheduled for urolift procedure today with urologist in [place] however on presentation there he was found to have acutely high blood pressure and the procedure could not be performed as a consequence. He was told to f/u with his PCP imminently- on presentation to PCP an hour later his BP was still high with some L sided facial numbness and he was referred to the ED for eval. In ED, still acutely hypertensive, the stroke workup was performed with negative CT and MRI. This is his first real experience with hypertension he does not take any BP meds at baseline and is in generally good health except for BPH. Lives with he is retired no particular stress going on except prospect of urethral procedure which has faded unlike his BP. On exam on the floor with negative stroke workup he is still acutely hypertensive and not feeling great. Patient History Medical History BPH (benign prostatic hyperplasia) Hyperlipidemia Spinal stenosis Surgical History H/O hernia repair Family & Social History Social History: household members spouse Prior Living Arrangements House Safety & Behavioral: Feels Safe in Current Yes Environment Been Physically Hurt or No Threatened By a Person Tobacco & Substance use: Smoking Status Former smoker alcohol intake frequency 0-2 drinks per day Substance Use Type does not use Meds Home Medications and Allergies Home Medications Medication Instructions Recorded Confirmed Type atorvastatin 20 mg tablet (Lipitor) 20 mg PO QDAY #0 01/24/16 05/09/21 History Allergies Allergy/AdvReac Type Severity Reaction Status Date / Time codeine [CODEINE] Allergy Intermediate NAUSEA Verified 05/09/21 12:00 Review of Systems Review of Systems Narrative: all systems reviewed and negative except as otherwise documented in HPI. Exam Vital Signs (past 8 hours): - 05/09/21 11:33 05/09/21 11:38 05/09/21 11:39 Temperature 98.6 F Pulse Rate 59 L Respiratory Rate 18 16 Blood Pressure 222/95 H 199/84 H Pulse Oximetry 99 96 97 05/09/21 11:40 05/09/21 11:45 05/09/21 11:50 Temperature Pulse Rate 59 L 58 L 56 L Respiratory Rate 26 H 26 H 17 Blood Pressure Pulse Oximetry 99 97 98 05/09/21 11:53 05/09/21 12:00 05/09/21 12:15 Temperature Pulse Rate 56 L 55 L 58 L Respiratory Rate 22 22 20 Blood Pressure 206/96 H 193/88 H 190/86 H Pulse Oximetry 98 97 97 05/09/21 12:30 05/09/21 13:00 05/09/21 14:30 Temperature 97.9 F Pulse Rate 56 L 56 L 62 Respiratory Rate 13 17 18 Blood Pressure 194/88 H 209/91 H 207/100 H Pulse Oximetry 97 97 98 05/09/21 16:33 Temperature Pulse Rate 58 L Respiratory Rate 18 Blood Pressure 185/85 H Pulse Oximetry 98 Oxygen Delivery Method Room Air Narrative Exam Narrative: sitting in bed with at bedside Const General: cooperative, comfortable and well developed [facility] Head: normal to inspection, normocephalic and atraumatic Eyes General: appearance normal, both eyes and all related structures Alignment and Position: alignment normal Neck Neck: normal visual inspection, full ROM, trachea midline and supple Resp Auscultation: clear to auscultation bilaterally Cardio Rate: regular rate Rhythm: regular rhythm Heart Sounds: S1 normal and S2 normal GI Other: soft nontender nondistended normal bowel sounds Skin General: no rashes or lesions noted Neuro General: patient alert, patient awake, patient oriented x3, moves all extremities and CN's II-XI intact bilaterally Cranial Nerves: CN's II-XI intact bilaterally Cognition: normal cognition Speech: speech normal Motor: muscle tone normal throughout Sensory Exam: no sensory deficits noted (sensory deficit in R side of face mild to light touch) Extrem General: normal to inspection and full ROM Psych Appearance: grossly normal Objective Labs Result Diagrams: 05/09/21 12:00 05/09/21 12:00 Labs: Laboratory Results - last 24 hr 05/09/21 05/09/21 05/09/21 12:00 12:00 12:00 WBC 5.9 RBC 4.91 Hgb 15.1 Hct 44.5 MCV 90.7 MCH 30.8 MCHC 34.0 RDW 13.3 Plt Count 183 Neut % (Auto) 74.8 Lymph % (Auto) 18.0 L [place] % (Auto) 4.7 Eos % (Auto) 2.0 Baso % (Auto) 0.5 Neut # (Auto) 4400 Lymph # (Auto) 1100 [place] # (Auto) 300 Eos # (Auto) 100 Baso # (Auto) 0 PT 10.7 INR 1.0 APTT 34 Sodium 138 Potassium 4.6 Chloride 107 Carbon Dioxide 26 BUN 25 H Creatinine 1.17 Estimated GFR > 60.0 BUN/Creatinine Ratio 21.4 Glucose 113 H Calcium 9.1 Total Bilirubin 0.7 AST 22 ALT 12 Alkaline Phosphatase 53 Total Creatine Kinase 46 L CK-MB (CK-2) TNP CK-MB (CK-2) Rel Index TNP Troponin I < 0.012 Total Protein 7.3 Albumin 4.1 Globulin 3.2 Albumin/Globulin Ratio 1.3 SARS-CoV-2 (PCR) 05/09/21 13:23 WBC RBC Hgb Hct MCV MCH MCHC RDW Plt Count Neut % (Auto) Lymph % (Auto) [place] % (Auto) Eos % (Auto) Baso % (Auto) Neut # (Auto) Lymph # (Auto) [place] # (Auto) Eos # (Auto) Baso # (Auto) PT INR APTT Sodium Potassium Chloride Carbon Dioxide BUN Creatinine Estimated GFR BUN/Creatinine Ratio Glucose Calcium Total Bilirubin AST ALT Alkaline Phosphatase Total Creatine Kinase CK-MB (CK-2) CK-MB (CK-2) Rel Index Troponin I Total Protein Albumin Globulin Albumin/Globulin Ratio SARS-CoV-2 (PCR) Negative Assessment & Plan Assessment & Plan narrative: #hypertensive emergency blood pressure acutely elevated out of the blue with no priors stroke workup negative no more need for permissive HTN will start some oral and prns lisinopril and hydralazine prn #HLD continue to hold home statin until DC #BPH with obstruction flomax if desired MDM: Kym [phone] code: DNR diet: limited sodium dvt: lovenox dispo: home tomorrow if BP can get under control Time Spent With Patient Critical Care time: I spent a total of [] minutes of critical care time on this patient's care today; this time is exclusive of procedural time.
[2021-05-09] MEDS: TAMSULOSIN 0.4 MG CAPSULE PO (18:01)
[2021-05-09] MEDS: ACETAMINOPHEN 325 MG TABLET 650 MG PO (18:02)
[2021-05-09] MEDS: lisinopriL 20 MG TABLET PO (18:02)
[2021-05-10 04:13] VITALS: BP 108/48; PULSE 50; RESP 17; TEMP 36.6; O2SAT 98
[2021-05-10 05:48] LABS: Add Manual Diff / Slide Review NO; Basophils Absolute Auto 0 /uL (0-100); Basophils Percent Auto 0.5 % (0-2); Eosinophils Absolute Auto 200 /uL (0-450); Eosinophils Percent Auto 4.1 % (2-4); Hematocrit 39.8 % (41-53); Hemoglobin 13.5 g/dL (13.5-17.5); Lymphocytes Absolute Auto 1200 /uL (1100-4500); Lymphocytes Percent Auto 26.9 % (25-40); Mean Corpuscular Hemoglobin 30.8 PG (26-34); Mean Corpuscular Volume 90.6 fL (80-100); Monocytes Absolute Auto 200 /uL (0-900); Monocytes Percent Auto 5.7 % (3-14); Neutrophils Absolute Auto 2800 /uL (1500-7000); Neutrophils Percent Auto 62.8 % (50-75); Platelet Count 160 X10^3/uL (150-400); Red Cell Distribution Width 13.6 % (11.6-14.8); White Blood Cell Count 4.4 X10^3/uL (4.5-11.0)
[2021-05-10 05:54] LABS: Alanine Aminotransferase 10 IU/L (<50); Albumin 3.1 g/dL (3.5-5.0); Albumin Globulin Ratio 1.2 (1.0-2.8); Alkaline Phosphatase 34 U/L (38-126); Aspartate Aminotransferase 17 IU/L (17-59); BUN Creatinine Ratio 23.5 (6-22); Bilirubin Total 0.8 mg/dL (0.2-1.3); Blood Urea Nitrogen 24 mg/dL (9-20); Calcium 8.5 mg/dL (8.4-10.2); Carbon Dioxide 30 mmol/L (22-32); Chloride 106 mmol/L (98-107); Estimated Glomerular Filt Rate > 60.0 mL/min (>60); Globulin 2.6 g/dL (1.7-4.1); Glucose 103 mg/dL (80-110); HEMOLYSIS < 15 (0-50); Potassium 4.1 mmol/L (3.4-5.1); Sodium 134 mmol/L (137-145); Total Protein 5.7 g/dL (6.3-8.2)
[2021-05-10 07:53] VITALS: BP 145/74; PULSE 53; RESP 18; TEMP 36.6; O2SAT 94
--- NOTE | 2021-05-10 08:30 | PM.DS.1 ---
History of Present Illness History of Present Illness Date Patient Seen: 05/10/21 Time Patient Seen: 08:30 Date of Onset of Symptoms: 05/09/21 Chief complaint: High BP- sent by Alta Santoro Discharge Providers Provider Date of admission: 05/09/21 13:26 Discharge Date: 05/10/21 Primary care physician: Arnaldo Santoro MD Discharge provider: Arnaldo Santoro MD Summary Hospital Course Discharge Diagnosis: Hypertensive emergency TIA BPH Hospital Course: Hypertension emergency. Patient was at his urology appointment for a UroLift and was noted to have significantly elevated blood pressure. He was sent to our clinic and was seen by my partner. At that time he was having right-sided facial numbness but no speech dysarthria or other changes. He presented to the emergency room in had negative workup. Since that time he was started on as needed hydralazine and lisinopril and his blood pressures slowly come down. He had resolved the numbness by the time he was at the emergency room and is doing well. Requesting to go home. Patient has no previous history of hypertension. No evidence of cyst lasting abnormality seems to be tolerating lisinopril and will discharge to home will follow-up with me early next week. Discussed concerning signs and symptoms. Patient will get a blood pressure cuff and will check blood pressures at home and bring that cuff with him when he comes next week. TIA. Question whether E had any significant defect or whether this was just a response to his elevated blood pressure but at this point is completely resolved. I do not think we have to workup further. Will add a aspirin once a day and follow from there. BPH. Stable. Did not have any issues. Will follow. Needs year old left will set that up after E stable. Status at Discharge Cognitive/behavioral status at discharge: at baseline, oriented Functional status at discharge: independent ambulation Overall status at discharge: patient is back to baseline Exam Vital Signs (past 8 hours): - 05/10/21 04:13 Temperature 98 F Pulse Rate 50 L Respiratory Rate 17 Blood Pressure 108/48 L Pulse Oximetry 98 Oxygen Delivery Method Room Air Narrative Exam Narrative: Alert smiling male lying in bed no acute distress Neck supple without adenopathy lungs are clear. Heart regular rate and rhythm neurologic exam is nonfocal. Objective Labs Result Diagrams: 05/10/21 05:10 05/10/21 05:10 Labs: Laboratory Results - last 24 hr 05/09/21 05/09/21 05/09/21 12:00 12:00 12:00 WBC 5.9 RBC 4.91 Hgb 15.1 Hct 44.5 MCV 90.7 MCH 30.8 MCHC 34.0 RDW 13.3 Plt Count 183 Neut % (Auto) 74.8 Lymph % (Auto) 18.0 L Sibley % (Auto) 4.7 Eos % (Auto) 2.0 Baso % (Auto) 0.5 Neut # (Auto) 4400 Lymph # (Auto) 1100 Sibley # (Auto) 300 Eos # (Auto) 100 Baso # (Auto) 0 PT 10.7 INR 1.0 APTT 34 Sodium 138 Potassium 4.6 Chloride 107 Carbon Dioxide 26 BUN 25 H Creatinine 1.17 Estimated GFR > 60.0 BUN/Creatinine Ratio 21.4 Glucose 113 H Calcium 9.1 Total Bilirubin 0.7 AST 22 ALT 12 Alkaline Phosphatase 53 Total Creatine Kinase 46 L CK-MB (CK-2) TNP CK-MB (CK-2) Rel Index TNP Troponin I < 0.012 Total Protein 7.3 Albumin 4.1 Globulin 3.2 Albumin/Globulin Ratio 1.3 SARS-CoV-2 (PCR) 05/09/21 05/10/21 05/10/21 13:23 05:10 05:10 WBC 4.4 L RBC 4.40 L Hgb 13.5 Hct 39.8 L MCV 90.6 MCH 30.8 MCHC 34.0 RDW 13.6 Plt Count 160 Neut % (Auto) 62.8 Lymph % (Auto) 26.9 Sibley % (Auto) 5.7 Eos % (Auto) 4.1 H Baso % (Auto) 0.5 Neut # (Auto) 2800 Lymph # (Auto) 1200 Sibley # (Auto) 200 Eos # (Auto) 200 Baso # (Auto) 0 PT INR APTT Sodium 134 L Potassium 4.1 Chloride 106 Carbon Dioxide 30 BUN 24 H Creatinine 1.02 Estimated GFR > 60.0 BUN/Creatinine Ratio 23.5 H Glucose 103 Calcium 8.5 Total Bilirubin 0.8 AST 17 ALT 10 Alkaline Phosphatase 34 L Total Creatine Kinase CK-MB (CK-2) CK-MB (CK-2) Rel Index Troponin I Total Protein 5.7 L Albumin 3.1 L Globulin 2.6 Albumin/Globulin Ratio 1.2 SARS-CoV-2 (PCR) Negative [facility] Medical History BPH (benign prostatic hyperplasia) Hyperlipidemia Spinal stenosis Surgical History H/O hernia repair Social History household members: spouse Smoking Status: Former smoker Discharge Assessment & Plan Assessment and Plan Assessment: Hypertensive crisis. Resolving Plan of Treatment: Discharge home follow-up with me early next week lisinopril every day. Six week BMP Discharge Plan Discharge Plan Patient Disposition: Home Discharge orders & Medications Prescriptions: New lisinopril 20 mg Tablet 20 mg PO DAILY Qty: 90 2RF Continued atorvastatin [Lipitor] 20 MG tablet 20 mg PO QDAY Qty: 0 0RF Follow up/Referrals: Arnaldo Santoro MD [Primary Care Provider] - 05/15/21 (please call for before discharge for time) Discharge Health Status Multidrug resistant organism: No MDRO Diet/Activity/Treatments Diet: Low-sodium Activity: as tolerated Visit Report/Discharge Packet Instructions: Essential Hypertension, How to Prevent Falls, Lisinopril Discharge Data Primary Care Provider: Arnaldo Santoro Attending Provider: Robin Lozano
[2021-05-10] MEDS: lisinopriL 20 MG TABLET PO (08:37)
[2021-05-10] MEDS: ACETAMINOPHEN 325 MG TABLET 650 MG PO (08:37)
--- NOTE | 2021-05-10 08:58 | PC.NURSE ---
Day shift: Pt d/c'd home this AM. Taken to car via WC by this video game script writer. His is driving him around today. They plan to go to [place] and have a 4 [address] boat ride home to [facility] today. Went over d/c paperwork but signed paperwork went with Pt today. Pt has all personal belongings. Pt will rock picker new MD script at his pharmacy today. Pt denies any chest pain or head ache this AM.
--- NOTE | 2021-05-10 11:15 | CM.DANOTE ---
DCP: Case received, EMR reviewed. Patient has already left hospital. Went ahead and completed DCP assessment based upon information currently available. Patient is a 80 year old male who admitted yesterday afternoon to the care of the hospitalist team. PCP: Dr. Santoro. Payer: confirmed: [facility] [facility]. Patient came to the hospital via private vehicle due to elevated blood pressure. According to notes, patient had an appointment with his urologist for a procedure. Prior to procedure, he was instructed to take tramadol. He started having some slurred spech. He was instructed to follow up with his primary care provider. Patient drove here from [place] to see primary care provider, and was sent to ER for evaluation. He was noted to have an elevated blood pressure. Was not able to meet with patient. He was discharged home, as BP stable. Patient is independent at his baseline, confirmed with nurse, he and his , Kym, both reside on [facility]. P: Patient was discharged home with no needs. Suad Martinez RN/Electrode Cleaner Discharge Planning/Care Management CM Discharge Assessment Start: 05/10/21 11:11 Freq: Status: Active Protocol: Document 05/10/21 11:11 (Rec: 05/10/21 11:15 [id number]) Discharge Planning Assessment Assigned Supervisor Area Suad Martinez RN/Electrode Cleaner Advance Directives? Yes Advance Directives on File No History Provided By Patient,Medical Record Prior Living Arrangements House Household Members spouse Type of transporation used prior to Drives own vehicle admit Independent with ADL's Yes Is patient alert and oriented? Yes Caregiver for Another No Barriers to Discharge No Discharge Plan Home Transportation Arrangement Spouse Referrals Initiated None needed Whiteboard Updated in Patient Room with Yes name and ext. # of Supervisor Area Review Status In Process Next Review Type Continued Stay Review
== END 2021-05-10 09:01 | disposition home or self-care (01) ==
LOC: ED 11:59 → AC 13:27
PROVIDERS: Admitting Provider Family Medicine; Emergency Provider Emergency Medicine; PCP Family Medicine; Referring Provider Emergency Medicine; Visit Provider Family Medicine
DX: I16.1 Hypertensive emergency (principal); G45.9 Transient cerebral ischemic attack, unspecified; N40.0 Benign prostatic hyperplasia without lower urinary tract symptoms; Z20.822 Contact with and (suspected) exposure to COVID-19
CPT/HCPCS: 36415; 70450; 70548; 70553; 80053; 82550; 84484; 85025; 85610; 85730; 87635; 93005; 99284; C9803; G0378

== ENCOUNTER 2021-09-10 09:12 | Day surgery (SDC) | payer MEDICARE, SELFPAY ==
[2021-05-09 14:54] VITALS: BMI 27.1
[2021-09-05 14:47] VITALS: BMI 31.7
[2021-09-10] VITALS (9 sets, daily range): BP systolic 144–175; BP diastolic 53–80; PULSE 58–65; RESP 12–20; TEMP 36.1–36.5; O2SAT 95–100; BMI 31.1
[2021-09-10 10:47] LABS: COVID19 -Nasal RAPID Negative (Negative)
[2021-09-10] MEDS: LACTATED RINGERS 1,000 ML 42 ML IV (11:48)
--- NOTE | 2021-09-10 13:55 | PM.HP.1 ---
History of Present Illness History of Present Illness Date Patient Seen: 09/10/21 Time Patient Seen: 13:55 Chief complaint: SDC Narrative: Pedro is a 81-year-old man with a symptomatic left inguinal hernia. Is consented for a left inguinal hernia repair with mesh. See the office note from June for details. Patient History Medical History (Updated 06/26/21 @ 13:00 by Max Andino MD) BPH (benign prostatic hyperplasia) Hyperlipidemia Spinal stenosis Surgical History H/O hernia repair Family & Social History Social History: household members spouse Tobacco & Substance use: Smoking Status Former smoker alcohol intake current alcohol intake frequency 0-2 drinks per day Substance Use Type does not use Meds Home Medications and Allergies Home Medications Medication Instructions Recorded Confirmed Type atorvastatin 20 mg tablet (Lipitor) 20 mg PO QDAY ##0 01/24/16 09/10/21 History aspirin 81 mg tablet,delayed 81 mg PO DAILY 06/26/21 09/10/21 History release losartan 100 mg tablet 100 mg PO DAILY 06/26/21 09/10/21 History hydrochlorothiazide 25 mg tablet 25 mg PO DAILY 09/10/21 09/10/21 History Allergies Allergy/AdvReac Type Severity Reaction Status Date / Time codeine [CODEINE] Allergy Intermediate NAUSEA Verified 09/10/21 11:24 Exam Vital Signs (past 8 hours): - 09/10/21 11:35 Temperature 97.3 F L Pulse Rate 59 L Respiratory Rate 20 Blood Pressure 175/75 H Pulse Oximetry 100 Oxygen Delivery Method Room Air Oxygen Flow Rate 0 Oxygen Delivery Method Room Air Oxygen Flow Rate 0 Narrative Exam Narrative: Abdomen soft Left inguinal hernia Objective Labs Labs: Laboratory Results - last 24 hr 09/10/21 10:12 SARS-CoV-2 (PCR) Negative Assessment & Plan Assessment and plan (1) Reducible left inguinal hernia: Status: Acute Plan We discussed the risks and benefits of an open left inguinal hernia repair with mesh and he would like to proceed. Time Spent With Patient Critical Care time: I spent a total of [] minutes of critical care time on this patient's care today; this time is exclusive of procedural time.
[2021-09-10] MEDS: LIDOCAINE 1% W/EPI 20 ML INJ (14:12)
[2021-09-10] MEDS: BUPIVACAINE 0.5% (PF) VIAL 30 ML INJ (14:12)
[2021-09-10] MEDS: CEFAZOLIN 2 GM/20 ML SYRINGE IV (14:16)
--- NOTE | 2021-09-10 14:19 | SUR.OPER ---
Supine on padded OR bed, head on pillow, arms secured on padded arm boards at <90 degrees abduction, legs uncrossed, safety belt at thigh, tape over blanket over lower legs. POSITION APPROVED BY SURGEON AND ANESTHESIA
--- NOTE | 2021-09-10 15:29 | PM.OP.1 ---
Operative Date/Time/Diagnoses Date of procedure: 09/10/21 Time of procedure: 15:29 Pre-op diagnosis: Left inguinal hernia Post-op diagnosis: same Procedure & Clinicians Procedure: Open left inguinal hernia repair with mesh Same procedure as scheduled: Yes Surgeon: Max Andino Operative Notes Procedure in detail: Preoperative antibiotic was administered. The patient was brought to the operating room and placed on the table in supine position general anesthesia was induced. The left groin was prepped and draped in the normal fashion and a time-out was performed. Roughly 10 mL of local anesthetic were injected into the skin and subcutaneous adipose tissue over the left groin. A 6 cm incision was made over the left inguinal canal. Dissection was carried down through the subcutaneous adipose tissue. A bridging vein was cauterized. We exposed the external oblique aponeurosis in the direction of the fibers. Additional local was injected deep to the aponeurosis. A 15 blade scalpel was used to thalia the external oblique aponeurosis. Metzenbaum scissors were used to carefully open the aponeurosis in the direction of the fibers taking care not to injure the underlying ilioinguinal nerve. We completely exposed the inguinal canal. The cord was dissected free from the inguinal ligament and floor of the inguinal canal and the external oblique aponeurosis was dissected off of the internal oblique taking care not to injure the hypogastric nerve. We encircled the cord with a Fairdealing drain for retraction. There was a a fatty direct hernia. We then fashioned a piece of polypropylene mesh to fit the inguinal canal floor. The mesh was secured with multiple interrupted 3-0 Prolene sutures to the pubic tubercle and shelving edge of the inguinal ligament as well as to the conjoint tendon medially. The tails were overlapped to recreate an internal ring and the medial tail was secured to the inguinal ligament laterally with additional suture. We injected some more local into the fatty tissue in the inguinal canal and cord. Finally, we removed the Aracelis drain and closed the external oblique fascia with a running 3-0 Vicryl suture. Skin was closed with interrupted 3-0 Vicryl dermal sutures and a running 4 Monocryl subcuticular stitch. EBL 15 mL The patient was awakened and brought to recovery room. Post-operative Condition: stable Disposition: PACU
[2021-09-10] MEDS: HYDROCODONE/ACET 5/325 TABLET 1 TAB PO ×2 (15:41→16:18)
== END 2021-09-10 16:20 | disposition home or self-care (01) ==
PROVIDERS: PCP Family Medicine; Referring Provider Surgery; Visit Provider Surgery
PROC: (CPT 49505; principal; 2021-09-10 12:00)
DX: K40.90 Unilateral inguinal hernia, without obstruction or gangrene, not specified as recurrent (principal); I10 Essential (primary) hypertension; E78.5 Hyperlipidemia, unspecified; Z20.822 Contact with and (suspected) exposure to COVID-19
CPT/HCPCS: 49505; 87635; C9803; J0690; J1100; J1885; J2405; J2704; J3010

== ENCOUNTER → 2022-03-24 10:14 | Outpatient (CLI) | payer MEDICARE, SELFPAY ==
[2022-03-17 13:05] VITALS: BMI 27.1
--- NOTE | 2022-03-24 | DI.CT.S_ITS ---
PROCEDURE: CT ABDOMEN PELVIS W CON INDICATIONS: HERNIA TECHNIQUE: After the administration of oral and IV contrast, axial sections were acquired from the lung bases to the pubic symphysis. Coronal and sagittal reformats were performed. For radiation dose reduction, the following was used: automated exposure control, adjustment of mA and/or kV according to patient size. COMPARISON: None. FINDINGS: Image quality: Excellent. Lung bases: Unremarkable. Small hiatal hernia. Heart: No significant findings. ABDOMEN: Liver: Unremarkable. Gallbladder: Suspected gallstones in the gallbladder neck. No gallbladder wall thickening or pericholecystic fluid collection. Biliary ducts: Unremarkable. Pancreas: Unremarkable. Spleen: Unremarkable. Adrenal Glands: Unremarkable. Kidneys and Ureters: There are bilateral parapelvic renal cysts. No stones or hydronephrosis. Stomach and Bowel: Stomach, small bowel loops, and colon are normal in caliber. Extensive sigmoid diverticulosis. No CT findings to suggest acute diverticulitis. Peritoneum: No abnormal intraperitoneal fluid. No free air. Ventral Wall: Small fat containing umbilical hernia. Abdominal Nodes: No retroperitoneal or mesenteric adenopathy by size criteria. Vessels: Aorta and inferior vena cava are normal in size. Ojsowbzk-da-[id number] atherosclerotic calcifications. PELVIS: Pelvic Organs: Unremarkable. Bladder: Bladder is semi contracted.. Pelvic Nodes: No enlarged lymph nodes. Miscellaneous: Small fat containing right inguinal hernia is seen. Bones: Degenerative disc and facet disease in lumbar spine. IMPRESSION: 1. A cause for hematuria is not definitively identified. No renal stones or hydronephrosis. Bladder is semi contracted, therefore, suboptimally evaluated. If clinical symptoms persist CT IVP is recommended for further evaluation. 2. Diverticulosis without acute diverticulitis. 3. Suspect gallstones in the gallbladder neck. Recommend ultrasound for further evaluation if clinically indicated. 4. Bilateral parapelvic renal cysts. 5. Small hiatal hernia. Dictated by: Laura Maravilla M.D. on 03/24/2022 at 12:52 Approved by: Laura Maravilla M.D. on 03/24/2022 at 13:08
[2022-03-24 10:41] LABS: Estimated Glomerular Filt Rate 46 mL/min (>60)
== END ==
PROVIDERS: Radiology Diagnostic Radiology; PCP Family Medicine; Referring Provider Surgery; Visit Provider Surgery
DX: K42.9 Umbilical hernia without obstruction or gangrene (principal); N28.1 Cyst of kidney, acquired; K44.9 Diaphragmatic hernia without obstruction or gangrene; R19.00 Intra-abdominal and pelvic swelling, mass and lump, unspecified site; K57.30 Diverticulosis of large intestine without perforation or abscess without bleeding
CPT/HCPCS: 36415; 74177; 82565; Q9967

== ENCOUNTER 2022-04-22 08:22 | Day surgery (SDC) | payer MEDICARE, SELFPAY ==
[2022-03-17 13:05] VITALS: BMI 27.1
[2022-04-17 15:05] VITALS: BMI 30.7
[2022-04-22] VITALS (7 sets, daily range): BP systolic 133–163; BP diastolic 53–88; PULSE 59–66; RESP 11–20; TEMP 36.2–37.1; O2SAT 96–99; BMI 32.5
--- NOTE | 2022-04-22 | PATH_ITS ---
[facility] Accession Number: [id number] No. of containers..01 Tissue . 01 Material submitted: . colon - JOSE COLONIC MASS . 01 Diagnosis: Pericolonic Mass, Excision: Nodular fat necrosis with benign calcifications, consistent with torsed epiploica. No evidence of neoplasm. [facility] 04/28/2022 1129 Local . 01 Electronically signed: . James Osman MD, PhD, Pathologist NPI- [id number] . 01 Gross description: . The specimen is received in formalin labeled with the patient's name, , and pericolonic mass, and consists of a marquez relatively smooth spherical nodule measuring 1.9 x 1.0 x 0.8 cm. One surface is roughened and possibly consistent with resection margin, and the surface is inked blue. The remaining surfaces are inked green. Sectioning reveals a brown-marquez hard friable cut surface. The specimen is submitted entirely in cassettes A1-A2 following brief decalcification. ([id number]) /MRV 04/23/2022 1438 Local . 01 Pathologist provided ICD-10: K55.9 . 01 CPT . 212560 Specimen Comment: A courtesy copy of this report has been sent to [facility] Pathology Performed at: 01 [facility] Cyt[facility] [address] [place] [address] [address], [place], [place] [id number] MD Tom Fontana MD Phone: [phone]
[2022-04-22] MEDS: LACTATED RINGERS 1,000 ML 42 ML IV ×2 (09:13→12:02)
--- NOTE | 2022-04-22 10:18 | PM.HP.1 ---
History of Present Illness History of Present Illness Chief complaint: Dx Lap Poss Ventral Hernia Repair Narrative: See H& P dated 03/18/2022. No changes since then patient states he is otherwise feeling well he is still having symptoms from his left groin with pain and discomfort lateral to his previous left inguinal hernia repair Patient History Medical History (Updated 04/22/22 @ 10:20 by Carina Villatoro MD) BPH (benign prostatic hyperplasia) Enlarged prostate HTN (hypertension) Hyperlipidemia Spinal stenosis Surgical History (Updated 04/22/22 @ 09:17 by Nithya Anne RN) H/O hernia repair (~09/2021) Hx of left inguinal hernia repair (2019) Family & Social History Social History: household members spouse Tobacco & Substance use: Tobacco type cigarettes Smoking Status Former smoker alcohol intake current alcohol intake frequency 0-2 drinks per day Substance Use Type does not use Meds Home Medications and Allergies Home Medications Medication Instructions Recorded Confirmed Type atorvastatin 20 mg tablet (Lipitor) 20 mg PO QDAY ##0 01/24/16 04/22/22 History losartan 100 mg tablet 100 mg PO DAILY 06/26/21 04/22/22 History hydrochlorothiazide 25 mg tablet 25 mg PO DAILY 09/10/21 04/22/22 History ibuprofen 400 mg tablet 800 mg PO Q8H PRN Pain 03/18/22 04/22/22 History Allergies Allergy/AdvReac Type Severity Reaction Status Date / Time codeine [CODEINE] AdvReac Intermediate NAUSEA Verified 04/22/22 09:16 Exam Vital Signs (past 8 hours): - 04/22/22 09:00 Temperature 98.7 F Pulse Rate 61 Respiratory Rate 16 Blood Pressure 151/70 H Pulse Oximetry 99 Oxygen Delivery Method Room Air Oxygen Delivery Method Room Air Const General: cooperative, healthy appearing and comfortable Nutritional Appearance: obese HENMT Head: normal to inspection Resp Effort & Inspection: normal respiratory effort and able to speak in complete sentences GI Palpation: soft and No tender Other: Incision left groin. Area of tenderness just lateral to incision Assessment & Plan Assessment and plan (1) Recurrent left inguinal hernia: Status: Acute Assessment & Plan narrative: I discussed different options with Mr. Vasquez. On ultrasound could be used to further delineate the diagnosis. Understands this but would like to proceed with laparoscopic evaluation. He and I both have a strong suspicion that there is a hernia lateral to the previous left inguinal hernia repair and if seen with the laparoscope than I will proceed with a repair. He understands the risks benefits and alternatives and would like to proceed. Time Spent With Patient Critical Care time: I spent a total of [] minutes of critical care time on this patient's care today; this time is exclusive of procedural time.
[2022-04-22] MEDS: CEFAZOLIN 2 GM/100 ML PREMIX 100 ML IV (10:50)
--- NOTE | 2022-04-22 11:13 | SUR.OPER ---
Supine on padded OR bed, head on pillow, arms padded with gel and tucked at sides, legs uncrossed, safety belt at thigh, heels to gel pad.
[2022-04-22] MEDS: BUPIVACAINE 0.5% W/ EPI (PF) 30 ML VIAL INJ (11:26)
--- NOTE | 2022-04-22 12:46 | PM.OP.1 ---
Operative Date/Time/Diagnoses Date of procedure: 04/22/22 Pre-op diagnosis: Recurrent left inguinal hernia Post-op diagnosis: same Procedure & Clinicians Procedure: Recurrent inguinal hernia repair Same procedure as scheduled: Yes Surgeon: Carina Villatoro Click Yes if Unassisted: Yes Anesthesia Type: General Operative Notes Findings: A large incarcerated left inguinal recurrent hernia is seen in the area of pain and tenderness. This is also corresponding to what I saw on the CT scan. Incidentally there was a hard nodule obtained from the tissue around the colon which was incarcerated within the hernia sac this was sent for pathology. Specimen(s): other Prosthetic devices, grafts, tissues, transplants, or devices: Pericolonic nodule Procedure in detail: Patient was taken to the operating room and placed supine on the operating room table bilateral SCDs were in place preoperative antibiotics administered. A time-out was performed. General endotracheal anesthesia was induced. The abdomen was prepped and draped in the usual sterile fashion. The local anesthetic was infused above the umbilicus and an incision was made and carried down through the subcutaneous tissues using electrocautery to Maynor retractors were used to doubly grasped the anterior abdominal wall fascia and elevate it entering the abdominal cavity sharply under direct visualization using an open Andrew technique. The stay sutures were placed through the fascia and the Andrew trocar was introduced. Thirty 10 laparoscope was introduced into the abdomen which was inspected there was no sign of entry injury. A large hernia with colon incarcerated within it was seen in the left lower abdomen. A photograph was taken. Care was taken to take down the adhesions around the colon which was incarcerated within this sac. During this process a very hard approximately chick pea-sized nodule was encountered. I removed this and sent it for pathology out of an abundance of caution though I suspect that it is chronic inflammatory type of lesion. Once the colon came down without injury the sac itself was measured. This was found to be 7 cm in length. And 5 cm in height. The peritoneal layer was incised above the defect and the hernia sac was then taken down. After proceeding with this process the anatomy was clarified. I saw spermatic vessels and spermatic cord and entering into the medial portion of the defect. The femoral vessels were seen in their expected location. Based on this anatomy I think I can call the diagnosis squarely a recurrent left inguinal hernia with incarceration. Also due to the location and the anatomy a large left 3DMax mesh was introduced into the abdomen. It was placed into the peritoneal pocket that was created around the hernia defect with the hernia defect centered in the middle of it. The mesh fit quite well after some manipulation and the peritoneal layer was closed with a running V lock suture. The V lock was secured with 3 laparoscopic clips. The abdomen was then desufflated and the accessory trocars were removed under direct visualization. Patient tolerated this well. The umbilical trocar was removed and an additional 0 Vicryl suture was placed through the umbilical defect inferior to the most inferior of the 2 stay sutures. All 3 sutures were then tied in an interrupted fashion to close the midline defect. Few interrupted 3-0 Vicryl sutures were used to pull down the umbilical space. The skin was closed with Monocryl running sutures. This wounds were dressed with Steri-Strips. The EBL was minimal there were no complications and the patient went in good condition to the postoperative care unit.
[2022-04-22] MEDS: ACETAMINOPHEN 325 MG TABLET PO (13:08)
[2022-04-22] MEDS: ONDANSETRON 4 MG/2 ML INJ IV (13:30)
[2022-04-22] MEDS: OXYCODONE IR 5 MG TABLET PO (13:35)
== END 2022-04-22 14:10 | disposition home or self-care (01) ==
PROVIDERS: PCP Family Medicine; Referring Provider Surgery; Visit Provider Surgery
PROC: 0WQF4ZZ Repair Abdominal Wall, Percutaneous Endoscopic Approach (ICD-10-PCS; CPT 49651; principal; 2022-04-22 09:45)
DX: K40.31 Unilateral inguinal hernia, with obstruction, without gangrene, recurrent (principal); I10 Essential (primary) hypertension; M79.89 Other specified soft tissue disorders
CPT/HCPCS: 49651; J0690; J1100; J2250; J2405; J2704; J3010

== ENCOUNTER → 2022-09-19 10:16 | Outpatient (CLI) | payer MEDICARE, SELFPAY ==
[2022-03-17 13:05] VITALS: BMI 27.1
--- NOTE | 2022-09-19 10:17 | DI.NM.S_ITS ---
PROCEDURE: NM GIL PERF SPECT R&S PHARM Rest and pharmacological stress myocardial perfusion SPECT with gated imaging and ejection fraction RADIOPHARMACEUTICAL: 11.1 mCi Tc-99m tetrafosmin IV at rest and 27.5 mCi Tc-99m tetrafosmin IV at peak effect of pharmacological stress. [id number] was performed. INDICATIONS: Other forms of dyspnea TECHNIQUE: Radiopharmaceutical was injected at peak stress test, and also at rest. SPECT images were obtained. SPECT myocardial perfusion images were displayed in short axis, horizontal long axis, and vertical long axis views. Gated images were reviewed using [employer] software. COMPARISON: None. CARDIAC STRESS: A pharmacologic stress test was performed under the supervision of an attending staff, using an infusion of lexisan 0.4mg IV X1. Hemodynamic data: There is normal blood pressure and heart rate response to pharmacologic stress. Symptoms: The patient denied anginal chest pain. Aminophylline: none EKG: No diagnostic changes of ischemia; no ectopy. FINDINGS: Raw data: There is good myocardial uptake of radiotracer. No significant motion artifacts. Xkik-cg-lywoh ratio is 0.31 (normal is less than 0.38 for tetrafosmin tracer). Left ventricle function: Gated images demonstrate normal left ventricular wall thickening. No segmental wall motion abnormalities. No transient ischemic dilation; TID is 0.99 (normal less than 1.3). Left ventricle resting end diastolic volume is 144 mL. Left ventricle stress ejection fraction is 76%; normal range is above 45%. Myocardial perfusion: No perfusion defects on stress prone imaging. IMPRESSION: Low risk, normal pharmaceutical nuclear stress test 1) No perfusion evidence of ischemia or infarction. 2) Enlarged left ventricle with normal wall motion and normal systolic function (EF post stress 76%). 3) No ST changes with lexiscan. 4) No angina during the study. 5) Compared to the nuclear stress test done 12/06/2015, no significant change. Dictated by: Quinn Nur MD on 09/19/2022 at 16:53 Approved by: Quinn Nur MD on 09/19/2022 at 16:55
== END ==
PROVIDERS: PCP Family Medicine; Referring Provider Family Medicine; Visit Provider Family Medicine
DX: R06.09 Other forms of dyspnea (principal)
CPT/HCPCS: 71046; 78452; 93017; A9502; J2785

== ENCOUNTER → 2022-09-19 16:01 | Outpatient (CLI) | payer MEDICARE, SELFPAY ==
[2022-03-17 13:05] VITALS: BMI 27.1
--- NOTE | 2022-09-19 | DI.RAD.S_ITS ---
PROCEDURE: XR CHEST 2V INDICATIONS: CHEST TECHNIQUE: 2 views of the chest were acquired. COMPARISON: [facility], CR, XR CHEST 2V, 07/27/2020, 9:39. FINDINGS: Surgical changes and devices: None. Lungs and pleura: Lungs are clear. No pleural effusions or pneumothorax. Mediastinum: Mediastinal contours are normal. Heart size is normal. Bones and chest wall: No suspicious bony abnormalities. Soft tissues appear unremarkable. IMPRESSION: No acute cardiopulmonary pathology. Dictated by: Aleks Calderon M.D. on 09/19/2022 at 16:46 Approved by: Aleks Calderon M.D. on 09/19/2022 at 16:46
== END ==
PROVIDERS: PCP Family Medicine; Referring Provider Family Medicine; Visit Provider Family Medicine
DX: R06.09 Other forms of dyspnea (principal)
CPT/HCPCS: 71046

== ENCOUNTER → 2024-04-04 10:35 | Outpatient (CLI) | payer OTHER, SELFPAY ==
[2022-03-17 13:05] VITALS: BMI 27.1
--- NOTE | 2024-04-04 10:50 | DI.MRI.S_ITS ---
PROCEDURE: MR LUMBAR SPINE WO CON INDICATIONS: Chronic Back Pain TECHNIQUE: Noncontrast sagittal T1 spin echo and T2 fast echo, sagittal STIR, and T2 fast spin echo through the lumbar spine. In cases with scoliosis, additional coronal T2 fast spin echo may be performed. COMPARISON: [facility], MR, MR LUMBAR SPINE WO CON, 09/24/2020, 13:12. FINDINGS: Image quality: Excellent. Alignment and Curvature: There is normal bony alignment. Bone Marrow: Degenerative endplate changes. Marrow is of normal overall signal. No acute vertebral body compression fractures. Spinal Cord: Conus medullaris terminates at the L1 level. Visualized cord demonstrates normal signal and size. Paraspinous Soft Tissues: No paravertebral masses. T12-L1: Disc desiccation. No central canal or neural foraminal stenosis. L1-L2: Disc desiccation. Facet arthropathy. No central canal stenosis. Mild bilateral neural foraminal stenosis. L2-L3: Disc desiccation and moderate disc height loss. Facet arthropathy. Disc bulge. Moderate to severe central canal stenosis. Pypr-re-jwadenek bilateral neural foraminal stenosis. Stable compared to prior. L3-L4: Disc desiccation and moderate disc height loss. Diffuse disc bulge. Facet arthropathy and thickening of ligamentum flavum. Stable severe central canal stenosis. Stable mild to moderate bilateral neural foraminal stenosis. L4-L5: Disc desiccation and mild diffuse disc bulge. Facet arthropathy and thickening of ligamentum flavum. Severe central canal stenosis. Stable moderate left and mild right neural foraminal stenosis. L5-S1: Disc desiccation and mild diffuse disc bulge. Facet arthropathy. No central canal stenosis. Mild bilateral neural foraminal stenosis. Stable compared to prior. IMPRESSION: 1. Multilevel degenerative changes of the lumbar spine as described above which are overall stable in appearance compared to prior exam. 2. Severe central canal stenosis at L3-L4 and L4-5. 3. Multilevel mild and moderate neural foraminal stenosis. Dictated by: Steve Higgins M.D. on 04/04/2024 at 17:39 Approved by: Steve Higgins M.D. on 04/04/2024 at 17:44
== END ==
LOC: MRI 10:35
PROVIDERS: PCP Family Medicine; Referring Provider Family Medicine; Visit Provider Family Medicine
DX: M54.42 Lumbago with sciatica, left side (principal); M54.41 Lumbago with sciatica, right side; M47.816 Spondylosis without myelopathy or radiculopathy, lumbar region; M47.817 Spondylosis without myelopathy or radiculopathy, lumbosacral region; M48.061 Spinal stenosis, lumbar region without neurogenic claudication; M48.07 Spinal stenosis, lumbosacral region; G89.29 Other chronic pain
CPT/HCPCS: 72148

== ENCOUNTER → 2024-11-08 13:34 | Outpatient (CLI) | payer OTHER, SELFPAY ==
[2022-03-17 13:05] VITALS: BMI 27.1
== END ==
PROVIDERS: Family Provider Family Medicine; PCP Family Medicine; Referring Provider Family Medicine; Visit Provider Surgery
DX: I73.9 Peripheral vascular disease, unspecified (principal); D04.9 Carcinoma in situ of skin, unspecified
CPT/HCPCS: 99212; 99213

== ENCOUNTER → 2024-11-25 13:22 | Outpatient (CLI) | payer OTHER, SELFPAY ==
[2022-03-17 13:05] VITALS: BMI 27.1
== END ==
LOC: WC 13:23
PROVIDERS: Family Provider Family Medicine; PCP Family Medicine; Referring Provider Family Medicine; Visit Provider Physician Assistant
DX: Z09 Encounter for follow-up examination after completed treatment for conditions other than malignant neoplasm (principal); Z87.2 Personal history of diseases of the skin and subcutaneous tissue; I73.9 Peripheral vascular disease, unspecified; R20.8 Other disturbances of skin sensation; D04.9 Carcinoma in situ of skin, unspecified; Z88.5 Allergy status to narcotic agent
CPT/HCPCS: 99211; 99212